=== PATIENT | female | born 1960 | race Caucasian/White ===

== ENCOUNTER 2016-12-22 17:18 | Observation (INO) | payer OTHER ==
--- NOTE | 2016-12-22 17:35 | CPEKG ---
Heart Rate: 103 RR Interval: 583 QRSD Interval: 90 QT Interval: 352 QTC Interval: 461 QRS [place]: 14 T Wave [place]: 41 EKG Severity - ABNORMAL ECG - EKG Impression: ATRIAL FIBRILLATION, V-RATE 83-111 EKG Impression: MULTIFORM VENTRICULAR PREMATURE COMPLEXES Electronically Signed By: Jimmy Jay 22-Dec-2016 20:02:09
--- NOTE | 2016-12-22 17:37 | EDPHY ---
H & P Stated Complaint: From PCP for ?Afib, Chest Heaviness and Cough Time Seen by Provider: 12/22/16 17:27 HPI/ROS: CHIEF COMPLAINT: Dyspnea, newly diagnosed atrial fibrillation HISTORY OF PRESENT ILLNESS: The patient presents to the ED from her primary care provider's office where she was diagnosed with new onset atrial fibrillation. The patient's initial symptoms began in October where she had some chest pain, shortness of breath cough and wheezing. She was diagnosed with bronchitis and treated with albuterol and antibiotics. She had improvement of her symptoms. The patient reports that several weeks ago she had recurrent dyspnea, shortness of breath as well as some vague right-sided chest discomfort. She has had a dry nonproductive cough. The patient denies asymmetric calf pain or swelling. She denies recent prolonged immobilization. The patient denies prior history of PE or DVT. The patient denies history of exertional chest pain. The patient reports mild to moderate dyspnea on exertion. The patient denies fever. She denies additional complaints. REVIEW OF SYSTEMS: A comprehensive 10 point review of systems is otherwise negative aside from elements mentioned in the history of present illness. Source: Patient Exam Limitations: No limitations - Personal History Current Tetanus Diphtheria and Acellular Pertussis (TDAP): Yes - Medical/Surgical History Hx Asthma: No Hx Chronic Respiratory Disease: No Hx Diabetes: No Hx Cardiac Disease: No Hx Renal Disease: No Hx Cirrhosis: No Hx Alcoholism: No Hx HIV/AIDS: No Hx Splenectomy or Spleen Trauma: No Other PMH: Hysterectomy, Heniated Disc, High Cholesterol - Social History Smoking Status: Never smoked - Physical Exam Exam: General Appearance: Alert, no distress Eyes: Pupils equal and round no pallor or injection ENT, Mouth: Mucous membranes moist Respiratory: There are no retractions, lungs are clear to auscultation Cardiovascular: Irregular rate consistent with atrial fibrillation Gastrointestinal: Abdomen is soft and nontender, no masses, bowel sounds normal Neurological: A&O, normal motor function, normal sensory exam, normal cranial nerves Skin: Warm and dry, no rashes Musculoskeletal: Neck is supple nontender Extremities: symmetrical, full range of motion Constitutional: Initial Vital Signs Temperature (C) 36.8 C 12/22/16 17:21 Heart Rate 92 12/22/16 17:21 Respiratory Rate 18 12/22/16 17:21 Blood Pressure 168/118 H 12/22/16 17:21 O2 Sat (%) 96 12/22/16 17:21 O2 Delivery Mode Room Air Allergies/Adverse Reactions: No Known Allergies Allergy (Unverified 12/22/16 17:20) Home Medications: Medication Instructions Recorded PRILOSEC 12/22/16 Simvastatin 12/22/16 Medical Decision Making - Diagnostics EKG Interpretation: EKG: Complete interpretation has been separately recorded in the [facility] archive. Summary impression: Atrial fibrillation, rate 106, no ST segment elevation noted, Imaging: Imaging Impressions Chest X-Ray 12/22/16 17:32 Impression: No acute findings in the chest. ED Course/Re-evaluation: The patient presents to the ED with newly diagnosed atrial fibrillation, dyspnea and vague right-sided chest discomfort. The patient's D-dimer is negative which I feel adequately excludes pulmonary embolism. The patient was started on a diltiazem drip for rapid atrial fibrillation. The patient has no evidence of anemia. She had mild hypertension upon arrival. The patient was referred to the ED from her primary care provider's office. The patient's primary care physician Dr. Shin Jerry has requested that Dr. Jorge Nails from Cardiology evaluate the patient and he will do so tomorrow. The patient will be admitted to the hospital for observation this evening. Consultation is made with Dr. Manning from the hospitalist service. Differential Diagnosis: Differential diagnosis considered includes atrial fibrillation, ventricular tachycardia, congestive heart failure, myocardial infarction, pulmonary embolism , hypertensive emergency - Data Points Laboratory Results: Laboratory Results 12/22/16 17:45 12/22/16 17:45 12/22/16 12/22/16 12/22/16 17:45 17:45 17:45 WBC 6.93 10^3/uL 10^3/uL (3.80-9.50) RBC 4.48 10^6/uL 10^6/uL (4.18-5.33) Hgb 14.5 g/dL g/dL (12.6-16.3) Hct 40.7 % % (38.0-47.0) MCV 90.8 fL fL (81.5-99.8) MCH 32.4 pg pg (27.9-34.1) MCHC 35.6 g/dL g/dL (32.4-36.7) RDW 12.2 % % (11.5-15.2) Plt Count 264 10^3/uL 10^3/uL (150-400) MPV 8.6 fL L fL (8.7-11.7) Neut % (Auto) 60.6 % % (39.3-74.2) Lymph % (Auto) 28.7 % % (15.0-45.0) [place] % (Auto) 6.5 % % (4.5-13.0) Eos % (Auto) 3.0 % % (0.6-7.6) Baso % (Auto) 0.9 % % (0.3-1.7) Nucleat RBC Rel Count 0.0 % % (0.0-0.2) Absolute Neuts (auto) 4.20 10^3/uL 10^3/uL (1.70-6.50) Absolute Lymphs (auto) 1.99 10^3/uL 10^3/uL (1.00-3.00) Absolute Monos (auto) 0.45 10^3/uL 10^3/uL (0.30-0.80) Absolute Eos (auto) 0.21 10^3/uL 10^3/uL (0.03-0.40) Absolute Basos (auto) 0.06 10^3/uL 10^3/uL (0.02-0.10) Absolute Nucleated RBC 0.00 10^3/uL 10^3/uL (0-0.01) Immature Gran % 0.3 % % (0.0-1.1) Immature Gran # 0.02 10^3/uL 10^3/uL (0.00-0.10) PT 12.3 SEC SEC (12.0-15.0) INR 0.92 (0.83-1.16) APTT 25.0 SEC SEC (23.0-38.0) D-Dimer < 0.27 ug/mLFEU ug/mLFEU (0.00-0.50) Sodium 141 mEq/L mEq/L (134-144) Potassium 3.6 mEq/L mEq/L (3.5-5.2) Chloride 106 mEq/L mEq/L (97-110) Carbon Dioxide 23 mEq/l mEq/l (22-31) Anion Gap 12 mEq/L mEq/L (8-16) BUN 13 mg/dL mg/dL (7-23) Creatinine 0.7 mg/dL mg/dL (0.6-1.0) Estimated GFR > 60 Glucose 92 mg/dL mg/dL (70-100) Calcium 10.0 mg/dL mg/dL (8.5-10.4) Troponin I < 0.012 ng/mL ng/mL (0-0.034) TSH Pending Departure - Departure Disposition: [facility] Inpatient Acute Clinical Impression: Atrial fibrillation, Dyspnea Condition: Fair Referrals: hSin Jerry MD [Primary Care Provider] - As per Instructions
[2016-12-22 18:10] LABS: % IMMATURE GRANULYOCYTES 0.3 % (0.0-1.1); ABSOLUTE IMMATURE GRANULOCYTES 0.02 10^3/uL (0.00-0.10); ADD DIFF? NO; ADD MORPH? NO; ADD SCAN? NO; ATYPICAL LYMPHOCYTE FLAG 10 (0-99); FRAGMENT RBC FLAG 0 (0-99); HEMATOCRIT 40.7 % (38.0-47.0); HEMOGLOBIN 14.5 g/dL (12.6-16.3); LEFT SHIFT FLG 0 (0-99); LIPEMIA HEMOLYSIS FLAG 90 (0-99); MEAN CELL HEMOGLOBIN 32.4 pg (27.9-34.1); MEAN CELL HEMOGLOBIN CONCENTR. 35.6 g/dL (32.4-36.7); MEAN CELL VOLUME 90.8 fL (81.5-99.8); MEAN PLATELET VOLUME 8.6 fL (8.7-11.7); PLATELET CLUMPS FLAG 0 (0-99); PLATELET COUNT 264 10^3/uL (150-400); RED BLOOD CELL COUNT 4.48 10^6/uL (4.18-5.33); RED CELL DISTRIBUTION WIDTH 12.2 % (11.5-15.2)
[2016-12-22 18:18] LABS: INR 0.92 (0.83-1.16); PROTIME(PATIENT) 12.3 SEC (12.0-15.0)
[2016-12-22] MEDS ORDERED: DILTIAZEM 125 MG in D5W 125 ML IV ONE (18:19)
[2016-12-22] MEDS ORDERED: ACETAMINOPHEN 325 MG TAB PO PRN (18:34)
[2016-12-22] MEDS ORDERED: ONDANSETRON DISINTEGRATING 4 MG TAB PO PRN (18:34)
[2016-12-22] MEDS ORDERED: ONDANSETRON 4 MG/2 ML VIAL IVP PRN (18:34)
[2016-12-22 18:38] LABS: ANION GAP 12 mEq/L (8-16); CARBON DIOXIDE 23 mEq/l (22-31); CHLORIDE 106 mEq/L (97-110); CREATININE 0.7 mg/dL (0.6-1.0); GLOMERULAR FILTRATION RATE > 60; GLUCOSE 92 mg/dL (70-100); POTASSIUM 3.6 mEq/L (3.5-5.2); SODIUM 141 mEq/L (134-144)
[2016-12-22 18:47] LABS: TROPONIN I < 0.012 ng/mL (0-0.034)
[2016-12-22] MEDS ORDERED: DILTIAZEM 125 MG in D5W 125 ML IV SCH (19:00)
[2016-12-22] MEDS ORDERED: ENOXAPARIN 40 MG/0.4 ML SYR SC SCH (20:30)
--- NOTE | 2016-12-22 20:46 | GHP ---
[f rep st] HISTORY AND PHYSICAL DATE OF ADMISSION: 12/22/2016 CHIEF COMPLAINT: Shortness of breath. HISTORY OF PRESENT ILLNESS: This is a 56-year-old female with a history of hyperlipidemia and a rec ent upper respiratory infection that began in October, associated with cough and shortness of breat h, who presents from her primary care provider office with newly diagnosed atrial fibrillation with rapid ventricular response. The patient reports that she has had a multi week pulmonary process satnam t has included persistent Cough and some shortness of breath with right-sided chest discomfort that prompted her representation to her primary care today as she believed that she had either not had th e original upper respiratory infection 5 weeks ago truly treated or now a new infection on top of it . She denies any subjective fevers or chills. Denies palpitations but a pressure like sensation oc casionally on her chest. Denies any productive cough. Reports increased shortness of breath with a ctivities that she typically would be not be winded by and more fatigue than she normally would note . Reports no nausea or vomiting. Denies changes in her bowel habits, dysuria, hematuria, lower ext remity edema, rashes, lightheadedness, dizziness or vision changes. PAST MEDICAL HISTORY: Hyperlipidemia. SOCIAL HISTORY: Negative for tobacco, alcohol or illicit drugs. REVIEW OF SYSTEMS: A 10-point review of systems is negative with the exception of that reported in the HPI. FAMILY HISTORY: Positive for heart disease in her mother. Unknown whether she has relatives with a trial fibrillation. ADVANCED DIRECTIVES: She is full cor, full tube. Her would be her medical decision maker. PHYSICAL EXAMINATION: VITAL SIGNS: Blood pressure is 160/110, heart rate in the 120s, respiratory rate 18, 95% on room air, 36.9. GENERAL: This is a very healthy appearing middle-aged female in no acute distress. HEENT: Notable for moist mucous membranes. Eye exam is negative for any icterus. CARDIAC: Patient is irregularly irregular. PULMONARY: Good respiratory effort. Clear to auscul tation bilaterally GASTROINTESTINAL: Positive bowel sounds. ABDOMEN: Soft and nontender. MUSCULO SKELETAL: Negative for any lower extremity edema. SKIN: Negative for any rashes. NEUROLOGIC: Pete frausto is alert and oriented x3. PSYCHIATRIC: She is pleasant and cooperative on interview and examinat ion. DATA: White count is 6.9, hematocrit 40.7, platelets of 264. D-dimer is less than 0.27. Troponin less than 0.012. EKG, which I personally reviewed and interpreted, shows atrial fibrillation, normal axis, normal int ervals with no acute ST-T changes. Chest x-ray, which I personally reviewed and interpreted, shows no acute infiltrates or edema. ASSESSMENT AND PLAN: This is a 56-year-old female presenting with atrial fibrillation with rapid ve ntricular response. 1. Atrial fibrillation with rapid ventricular response. The patient had symptoms, not of palpitati ons, but of shortness of breath and chest pressure. This may have been intermittent over the course of the last several weeks. CHADS-VASc score zero. At this time, will not initiate full dose antic oagulation. Will write the patient for aspirin and a diltiazem drip. Dr. Nails from Cardiology will see her in the morning. A transthoracic echocardiogram, and a TSH have both been ordered. 2. Hyperlipidemia. Will continue her home medications. 3. Prophylaxis with Lovenox. DIET: Cardiac. DISPOSITION: I expect in less than 2 midnights if the patient converts overnight on the diltiazem d rip. I have discussed the case with the emergency room physician. Patient will be triaged to the [facility] for a diltiazem drip. /[id number]/MODL
[2016-12-23 07:27] VITALS: O2SAT 97
[2016-12-23] MEDS ORDERED: PANTOPRAZOLE SODIUM 40 MG TAB PO SCH (09:00)
[2016-12-23] MEDS ORDERED: Herbals/Supplements -Info Only PO SCH (09:00)
[2016-12-23] MEDS ORDERED: VITAMIN B COMPLEX 1 EA CAP/TAB PO SCH (09:00)
[2016-12-23] MEDS ORDERED: ASPIRIN 81 MG CHEWABLE TAB PO SCH (09:00)
[2016-12-23] MEDS ORDERED: ATORVASTATIN CALCIUM 10 MG TAB PO SCH (09:00)
[2016-12-23] MEDS: DILTIAZEM 30 MG TAB PO SCH ×2 (10:45→12:34)
[2016-12-23 11:52] VITALS: BP 119/80; PULSE 65; RESP 19; TEMP 98.6
--- NOTE | 2016-12-23 15:55 | ECHO ---
[id number] + + [address] : : [place] [address] : : [phone] + + Adult Echocardiographic Report + -------+ :Name: ALEJANDRINA HOYT LStudy Date: 12/23/2016 07:40 AM : : Hospital Admission Number: [id number] : :: 1960 Gender: Female Height: 6 5 in : :Age: 56 yrs Race: Weight: 1 55 lb : :Reason For Study: New atrial fibrillation : : BSA: 1.8 meters2: + -------+ MMode/2D Measurements \T\ Calculations IVSd: 1.1 cm LVIDd: 4.0 cm FS: 32.4 % Ao root diam: LVPWd: 0.99 cm LVIDs: 2.7 cm EDV(Teich): 3.4 cm 68.3 ml LA dimension: ESV(Teich): 3.9 cm 26.4 ml EF(Teich): 61.3 % LVLd ap4: 7.5 cm SV(MOD-sp4): EDV(MOD-sp4): 35.0 ml 52.0 ml LVLs ap4: 6.1 cm ESV(MOD-sp4): 17.0 ml EF(MOD-sp4): 67.3 % Normal Measurement Values: + + :LVIDd (3.5-5.7cm) IVSd (0.6-1.1cm) LVPWd (0.6-1.1cm) Aortic Root (2.0-3.7cm)Left Atrium (1.5-4.0cm): :LV Vol(d) (76-115ml) LV Vol(s) (29-48ml) Ejec Fraction (50-65%)PV Americo (0.6- 1.2m/s) TV Americo (0.4-1.0m/s) : :MV E Americo (0.8-1.0m/s)MV A [place]o (0.3-1.0m/s)LVOT Americo (0.7-1.2m/s) Asc Ao Americo ( 0.9-1.8m/s) : + + Doppler Measurements \T\ Calculations MV E max americo: 71.3 cm/sec Ao V2 max: 115.4 cm/sec MV A max americo: 56.2 cm/sec Ao max P.3 mmHg MV E/A: 1.3 Left Ventricle The left ventricle is normal in size. There is normal left ventricular wall thickness. Left ventricular systolic function is normal. Ejection Fraction = 65-70%. No regional wall motion abnormalities noted. Right Ventricle The right ventricle is normal in size and function. Atria The left atrial size is normal. Right atrial size is normal. The interatrial septum is intact with no evidence for an atrial septal defect. Mitral Valve The mitral valve is normal in structure and function. There is no evidence of mitral valve prolapse. There is no mitral valve stenosis. There is trace mitral regurgitation. Tricuspid Valve Normal tricuspid valve. There is mild tricuspid regurgitation. Aortic Valve The aortic valve opens well. There is no aortic stenosis. There is no aortic insufficiency. Pulmonic Valve The pulmonic valve is not well visualized. There is no pulmonic valvular regurgitation. Great Vessels The aortic root is normal size. Pericardium/Pleural There is no pericardial effusion. There is a fat pad seen. Conclusion A complete two-dimensional transthoracic echocardiogram was performed (2D, M-mode, Doppler and color flow Doppler). Pt converted to NSR during echo. Left ventricular systolic function is normal. Ejection Fraction = 65-70%. Normal appearing valvular structures. There is trace mitral regurgitation. There is mild tricuspid regurgitation. There is a fat pad seen. Final Reading Physician: Candy Bradshaw signed on 12/23/2016 03:54 PM Ordering Physician: Beth Manning Performed By: Rafaela Washington RDCS
--- NOTE | 2016-12-23 20:49 | GDS ---
[f rep st] DISCHARGE SUMMARY DISCHARGE DIAGNOSES: 1. Atrial fibrillation with rapid ventricular rate, since converted to normal sinus rhythm. 2. Recent upper respiratory infection. 3. Hyperlipidemia. IMAGING AND PROCEDURES: 1. Echocardiogram, December 23, 2016, showed normal left ventricular systolic function with an ejectio n fraction 65% to 70% and normal-appearing valves. 2. Chest x-ray, December 22, 2016, was negative for consolidation, effusion or pneumothorax. HISTORY: For details, please see the history and physical dated January 08, 2017. In brief, the melonie ent is a 56-year-old female with a history of hyperlipidemia and a recent upper respiratory infectio n treated with steroids and antibiotics who presented to the emergency department with shortness of breath. She was found to be in rapid atrial fibrillation and was admitted to the hospital for furth er management. HOSPITAL COURSE: The patient was admitted to the care unit and monitored on telemetry. She was started on a diltiazem drip for rate control. She had a CHADS/VASc score of zero and thus w as treated with aspirin rather than anticoagulation. An echo was performed and revealed normal valve s. Her TSH was normal. Her chest x-ray was clear. Her EKG was nonischemic. She had 2 negative tropo nins and negative D-dimer. The following morning, she converted to normal sinus rhythm and was trans itioned to oral diltiazem. DISPOSITION: Patient is discharged home in stable condition. FOLLOWUP: Follow up with Dr. Roel Nails next week, as well as her primary care physician, Dr. Shin Jerry. DISCHARGE MEDICATIONS: Please see [employer] for complete updated outpatient medication list. New me dications on discharge include aspirin 81 mg p.o. daily, #30, no refills. Diltiazem 30 mg p.o. q.6 hours, #120, no refills. If she tolerates this well, this can be transitioned to long-acting diltia zem in her outpatient clinic follow up. Changed medications: Her simvastatin was discontinued and she was prescribed pravastatin 40 mg brent y to reduce drug interaction with statins and diltiazem. /[id number]/MODL
== END 2016-12-23 12:48 | disposition home or self-care (01) ==
LOC: F2W 20:25
PROVIDERS: ADMIT Hospitalist; ATTEND Hospitalist
DX: I48.91 Unspecified atrial fibrillation (principal); R00.0 Tachycardia, unspecified; E78.5 Hyperlipidemia, unspecified; J06.9 Acute upper respiratory infection, unspecified
CPT/HCPCS: 71010; 93005; 93306; G0378; J1650

== ENCOUNTER 2017-05-31 18:21 | Observation (INO) | payer OTHER ==
--- NOTE | 2017-05-31 18:39 | CPEKG ---
Heart Rate: 90 RR Interval: 667 QRSD Interval: 100 QT Interval: 408 QTC Interval: 500 QRS [place]: 8 T Wave [place]: 49 EKG Severity - ABNORMAL ECG - EKG Impression: ATRIAL FIBRILLATION Electronically Signed By: Irwin Ivey 01-Jun-2017 16:42:05
[2017-05-31] MEDS ORDERED: NITROGLYCERIN 0.4 MG BTL SL ONE ×2 (18:45→18:52)
[2017-05-31] MEDS ORDERED: ASPIRIN 81 MG CHEWABLE TAB ONE (18:45)
--- NOTE | 2017-05-31 18:47 | EDPHY ---
H & P Stated Complaint: CP Time Seen by Provider: 05/31/17 18:31 HPI/ROS: Chief Complaint: Chest pain HPI: 57-year-old woman with a history of paradoxical atrial fibrillation since December started having palpitations at 4 o'clock this afternoon consistent with prior episodes of atrial fibrillation. Was concerning to her with this is that she had chest tightness to an 8/10 which she had never had before. She was recently seen by Dr. barrera and by Dr. Ivey and was started on propafenone last week. She has had gone in atrial fibrillation for least 8 hours a day for 4-5 times in the last week. Denies any recent illness. No fevers or chills. No nausea or vomiting. Pain is described as a tightness in her chest, is an 8/10. There are no aggravating or alleviating factors. She is currently taking a baby aspirin a day is not on any other anticoagulation. ROS: 10 point Review of Systems is negative except as noted in the HPI. PMH: Atrial fibrillation Social History: No smoking, occasional alcohol, no recreational drug use Family History: non-contributory Physical Exam: Gen: Awake, Alert, No Distress HEENT: Nose: no rhinorrhea Eyes: PERRLA, EOMI Mouth: Moist mucosa Neck: Supple, no JVD Chest: nontender, lungs clear to auscultation Heart: S1, S2 normal, irregularly irregular, no murmur Abd: Soft, non-tender, no guarding Back: no CVA tenderness, no midline tenderness Ext: no edema, non-tender Skin: no rash Neuro: CN II-XII intact, Sensation grossly intact, Strength 5/5 in bilateral upper and lower extremities - Personal History Current Tetanus/Diphtheria Vaccine: Yes Current Tetanus Diphtheria and Acellular Pertussis (TDAP): Yes - Medical/Surgical History Hx Asthma: No Hx Chronic Respiratory Disease: No Hx Diabetes: No Hx Cardiac Disease: No Hx Renal Disease: No Hx Cirrhosis: No Hx Alcoholism: No Hx HIV/AIDS: No Hx Splenectomy or Spleen Trauma: No Other PMH: Hysterectomy, Heniated Disc, High Cholesterol, REFLUX, Bronchitis - Social History Smoking Status: Never smoked Constitutional: Initial Vital Signs Temperature (C) 36.6 C 05/31/17 18:22 Heart Rate 81 05/31/17 18:22 Respiratory Rate 16 05/31/17 18:22 Blood Pressure 171/110 H 05/31/17 18:22 O2 Sat (%) 96 05/31/17 18:22 O2 Delivery Mode Room Air Allergies/Adverse Reactions: No Known Allergies Allergy (Unverified 12/22/16 17:20) Home Medications: Medication Instructions Recorded Estradiol [Minivelle] 0.075 mg TD TUSA 12/22/16 Herbals/Supplements -Info Only 1 ea PO DAILY 12/22/16 Omeprazole Magnesium [Prilosec Otc] 20 mg PO DAILY 12/22/16 Vitamin B Complex [B Complex] 1 each PO DAILY 12/22/16 Aspirin [Aspirin 81mg (*)] 81 mg PO DAILY #30 tab.chew 12/23/16 Pravastatin Sodium 40 mg PO HS 12/23/16 Cetirizine [ZyrTEC 10 mg (*)] 10 mg PO DAILY 05/31/17 Diltiazem [Cardizem] 120 mg PO DAILY 05/31/17 Fish Oil/Dha/Epa [Fish Oil 1,200 1 each PO DAILY 05/31/17 mg Fish Oil] Propafenone HCl [Propafenone HCl 225 mg PO BID 05/31/17 ER] Medical Decision Making - Diagnostics EKG Interpretation: ECG time 6:36 p.m., atrial fibrillation, ventricular rate of 90, no acute ischemic changes. ED Course/Re-evaluation: 57-year-old woman with atrial fibrillation presenting with AF and chest tightness. No history of chest tightness associated if the past. Patient did receive relief with nitroglycerin here. Troponins negative. Case discussed with Dr. Felipe, hospitalist. He will admit to his service for serial troponins and ECGs. - Data Points Laboratory Results: Laboratory Results 05/31/17 18:40 05/31/17 18:40 05/31/17 05/31/17 18:40 18:40 WBC 6.07 10^3/uL 10^3/uL (3.80-9.50) RBC 4.69 10^6/uL 10^6/uL (4.18-5.33) Hgb 14.8 g/dL g/dL (12.6-16.3) Hct 43.0 % % (38.0-47.0) MCV 91.7 fL fL (81.5-99.8) MCH 31.6 pg pg (27.9-34.1) MCHC 34.4 g/dL g/dL (32.4-36.7) RDW 12.5 % % (11.5-15.2) Plt Count 314 10^3/uL 10^3/uL (150-400) MPV 9.3 fL fL (8.7-11.7) Neut % (Auto) 53.8 % % (39.3-74.2) Lymph % (Auto) 32.8 % % (15.0-45.0) [place] % (Auto) 7.2 % % (4.5-13.0) Eos % (Auto) 4.4 % % (0.6-7.6) Baso % (Auto) 1.5 % % (0.3-1.7) Nucleat RBC Rel Count 0.0 % % (0.0-0.2) Absolute Neuts (auto) 3.26 10^3/uL 10^3/uL (1.70-6.50) Absolute Lymphs (auto) 1.99 10^3/uL 10^3/uL (1.00-3.00) Absolute Monos (auto) 0.44 10^3/uL 10^3/uL (0.30-0.80) Absolute Eos (auto) 0.27 10^3/uL 10^3/uL (0.03-0.40) Absolute Basos (auto) 0.09 10^3/uL 10^3/uL (0.02-0.10) Absolute Nucleated RBC 0.00 10^3/uL 10^3/uL (0-0.01) Immature Gran % 0.3 % % (0.0-1.1) Immature Gran # 0.02 10^3/uL 10^3/uL (0.00-0.10) Sodium 138 mEq/L mEq/L (134-144) Potassium 3.8 mEq/L mEq/L (3.5-5.2) Chloride 98 mEq/L mEq/L (97-110) Carbon Dioxide 25 mEq/l mEq/l (22-31) Anion Gap 15 mEq/L mEq/L (8-16) BUN 15 mg/dL mg/dL (7-23) Creatinine 0.7 mg/dL mg/dL (0.6-1.0) Estimated GFR > 60 Glucose 88 mg/dL mg/dL (70-100) Calcium 10.4 mg/dL mg/dL (8.5-10.4) Total Bilirubin 0.5 mg/dL mg/dL (0.1-1.4) AST 28 IU/L IU/L (14-46) ALT 39 IU/L IU/L (9-52) Alkaline Phosphatase 66 IU/L IU/L (38-126) Troponin I < 0.012 ng/mL ng/mL (0.000-0.034) Total Protein 8.0 g/dL g/dL (6.3-8.2) Albumin 5.0 g/dL g/dL (3.5-5.0) Medications Given: Discontinued Medications Aspirin (Aspirin) 324 mg PO EDNOW ONE Stop: 05/31/17 18:53 Last Admin: 05/31/17 18:55 Dose: 234 mg Nitroglycerin (Nitrostat) 0.4 mg SL EDNOW ONE Stop: 05/31/17 18:53 Last Admin: 05/31/17 18:54 Dose: 0.4 mg Departure - Departure Disposition: [facility] Inpatient Acute Clinical Impression: Chest pain Condition: Fair Referrals: Shin Jerry MD [Primary Care Provider] - As per Instructions
[2017-05-31] MEDS ORDERED: ASPIRIN 81 MG CHEWABLE TAB PO ONE (18:52)
[2017-05-31 19:11] LABS: ALANINE AMINOTRANSFERASE 39 IU/L (9-52); ALKALINE PHOSPHATASE 66 IU/L (38-126); ANION GAP 15 mEq/L (8-16); ASPARTATE AMINOTRANSFERASE 28 IU/L (14-46); BILIRUBIN,TOTAL 0.5 mg/dL (0.1-1.4); CALCIUM 10.4 mg/dL (8.5-10.4); CARBON DIOXIDE 25 mEq/l (22-31); CHLORIDE 98 mEq/L (97-110); CREATININE 0.7 mg/dL (0.6-1.0); GLOMERULAR FILTRATION RATE > 60; GLUCOSE 88 mg/dL (70-100); POTASSIUM 3.8 mEq/L (3.5-5.2); SODIUM 138 mEq/L (134-144)
[2017-05-31 19:22] LABS: TROPONIN I < 0.012 ng/mL (0.000-0.034)
[2017-05-31 20:25] LABS: % IMMATURE GRANULYOCYTES 0.3 % (0.0-1.1); ABSOLUTE IMMATURE GRANULOCYTES 0.02 10^3/uL (0.00-0.10); ADD DIFF? NO; ADD MORPH? NO; ADD SCAN? NO; ATYPICAL LYMPHOCYTE FLAG 0 (0-99); FRAGMENT RBC FLAG 0 (0-99); HEMOGLOBIN 14.8 g/dL (12.6-16.3); LEFT SHIFT FLG 0 (0-99); LIPEMIA HEMOLYSIS FLAG 90 (0-99); MEAN CELL HEMOGLOBIN 31.6 pg (27.9-34.1); MEAN CELL HEMOGLOBIN CONCENTR. 34.4 g/dL (32.4-36.7); MEAN CELL VOLUME 91.7 fL (81.5-99.8); MEAN PLATELET VOLUME 9.3 fL (8.7-11.7); PLATELET CLUMPS FLAG 20 (0-99); PLATELET COUNT 314 10^3/uL (150-400); RED BLOOD CELL COUNT 4.69 10^6/uL (4.18-5.33); RED CELL DISTRIBUTION WIDTH 12.5 % (11.5-15.2)
[2017-05-31] MEDS ORDERED: ACETAMINOPHEN 325 MG TAB PO PRN (21:02)
[2017-05-31] MEDS ORDERED: ONDANSETRON 4 MG/2 ML VIAL IVP PRN (21:02)
[2017-05-31] MEDS ORDERED: ONDANSETRON DISINTEGRATING 4 MG TAB PO PRN (21:02)
[2017-05-31] MEDS ORDERED: PRAVASTATIN SODIUM 40 MG TAB PO SCH (21:30)
[2017-05-31] MEDS: PROPAFENONE HCL SR 225 MG CAP PO SCH (21:50)
--- NOTE | 2017-05-31 22:02 | GHP ---
[f rep st] HISTORY AND PHYSICAL DATE OF ADMISSION: 05/31/2017 HISTORY OF PRESENT ILLNESS: The patient is a very pleasant 57-year-old female with a history of atri al fibrillation diagnosed in December of this year after an admission with chest symptoms. At that time , she had a normal echocardiogram. This has been paroxysmal atrial fibrillation. She has seen Dr. Ivey and been started on propafenone. Her [id number] is 0. Says she is not on anticoagulation, aspirin alone. She also has a history o f hyperlipidemia. She had an active day riding horses and came home. She had symptoms of atrial fib rillation and then developed some sharp chest pains in the left side. Did not radiate. Was not asso ciated with diaphoresis, shortness of breath. Although her atrial fibrillation is often associated w ith shortness of breath, it is a little difficult to tease that out. Her exercise tolerance has not changed. She does have a family history of coronary artery disease bu t does not sound like premature coronary artery disease. Her coronary risk factors are hyperlipidemi a. She does not have hypertension. She does not smoke. She has not had heart failure symptoms. She had recent overnight hospitalization in December this year. No recent surgeries. No recent long ca r trips or plane trips. She denies calf tenderness, leg pain. REVIEW OF SYSTEMS: A complete 10-point review of systems conducted and negative except as noted in t he HPI. PAST MEDICAL HISTORY: Paroxysmal atrial fibrillation, hyperlipidemia, reflux. ALLERGIES: No known drug allergies. MEDICATIONS: Propafenone, vitamin B complex, aspirin, cetirizine, diltiazem, estradiol, fish oil and herbal supplements. SOCIAL HISTORY: No tobacco. Occasional alcohol. Lives with her . FAMILY HISTORY: As stated in the HPI. PHYSICAL EXAMINATION: PRESENTING VITAL SIGNS: Temp 36.6. Blood pressure 171/110. Now, 139/95. Pu lse 81. Breathing 16 times a minute. 96 on room air. GENERAL: No acute distress. HEENT: Sclerae anicteric. Oropharynx clear. Mucous membranes moist. NECK: Supple without lymphadenopathy or JVD . LUNGS: Clear to auscultation bilaterally. HEART: Irregularly irregular. S1, S2 without murmurs . ABDOMEN: Soft, nontender, nondistended. LOWER EXTREMITIES: Without edema. Calves are nontender . SKIN: Without rash. NEUROLOGIC: Nonfocal. LABORATORY: Sodium 138, potassium 3.8, chloride 98, bicarb 25, BUN 15, creatinine 0.7, glucose 88. LFTs normal. Troponin less than 0.012. CBC normal. EKG, interpreted by me, shows atrial fibrillation at 90 with normal axis and intervals. No ST or T-w ave changes. I have compared this to prior, and it is the same. I discussed the case with Dr. Ludwin Boothe. ASSESSMENT/PLAN: A 57-year-old female with paroxysmal atrial fibrillation presents with chest pain. 1. Chest pain. Somewhat atypical in nature in its sharpness but then she describes a dull heaviness . It is neither typical nor noncardiac chest pain. It is reasonable to stress her, cycle troponins. Follow her on telemetry. Perform exercise treadmill test with nuclear imaging in the morning. We will check a chest x-ray as that has not been obtained. 2. Question pulmonary embolism. Her risk factors are that she takes estrogen and has somewhat atypi audelia symptoms. We will check a D-dimer. If that is positive, we will go ahead and proceed with pulmo nary embolism. 3. Hyperlipidemia. Continue her statin. DISPOSITION: Observation status. /[id number]/MODL
[2017-06-01] MEDS: PROPAFENONE HCL SR 225 MG CAP PO SCH (08:57)
[2017-06-01] MEDS ORDERED: OMEGA-3 FATTY ACIDS 1,000 MG CAP PO SCH (09:00)
[2017-06-01] MEDS ORDERED: DILTIAZEM CD 120 MG CAP PO SCH (09:00)
[2017-06-01] MEDS ORDERED: CETIRIZINE 10 MG TAB PO SCH (09:00)
[2017-06-01] MEDS ORDERED: ASPIRIN 81 MG CHEWABLE TAB PO SCH (09:00)
[2017-06-01] MEDS ORDERED: PANTOPRAZOLE SODIUM 40 MG TAB PO SCH (09:00)
[2017-06-01] MEDS ORDERED: Herbals/Supplements -Info Only PO SCH (09:00)
[2017-06-01] MEDS ORDERED: DILTIAZEM 120 MG PO SCH (09:00)
[2017-06-01 11:58] VITALS: BP 99/83; PULSE 96; RESP 18; TEMP 98; O2SAT 93
[2017-06-01] MEDS ORDERED: REGADENOSON 0.4 MG/5 ML SYR IVP ONE (12:36)
--- NOTE | 2017-06-01 13:54 | ASMTCMCOM ---
CM Note CM Note Notes: Pt is a 57 y/o female admitted w/ chest pain and AFIB. Pt was here at [facility] this past December for chest symptoms. Pt has a stress test ordered. Pt will most likely discharge independent with supportive . No therapies were ordered. CM available for changes. Date Signed: 06/01/2017 01:53 PM Electronically Signed By:HELADIO Corado
--- NOTE | 2017-06-01 13:55 | CPR ---
[f rep st] NONINVASIVE CARDIAC PROCEDURE REPORT DATE OF PROCEDURE: 06/01/2017 PROCEDURE: Nuclear Lexiscan stress test. REASON FOR TEST: Atrial fibrillation and chest pain. Resting EKG shows atrial fibrillation with a rate of 114. She is asymptomatic. Resting blood pressu re 112/78, oxygen saturation 95%. STRESS PORTION: Lexiscan was injected rapidly, followed by saline flush. Cardiolite was then inject ed, followed by saline flush. Her heart rate did go up to 150 after injection. She did become flush ed and lightheaded. She was laid down and given caffeine, and symptoms subsided. Blood pressure 96/ 40. No ischemic changes noted. She spontaneously recovered with the caffeine. She then converted to a regular sinus rhythm. Blood pressure stable at 96/40. At conclusion of test, her heart rate was 82, blood pressure remained 96/4 0. She had no dizziness or lightheadedness. There were no ischemic changes noted on EKG. At this t dwayne, she currently is stable for nuclear imaging. /[id number]/MODL
--- NOTE | 2017-06-01 18:27 | GDS ---
[f rep st] DISCHARGE SUMMARY DISCHARGE DIAGNOSES: 1. Chest pain. 2. Paroxysmal atrial fibrillation, on anticoagulation. 3. Hyperlipidemia. HISTORY OF PRESENT ILLNESS: A 57-year-old female with known paroxysmal atrial fibrillation, already seen by Cardiology, on anticoagulation, who presents with episodes of intermittent palpitations with associated chest pressure. For details of the patient's initial presentation, please see the history and physical dated 05/31/2017. Consultative services are none. PROCEDURES: On 06/01/2017, the patient underwent cardiac stress testing, which was negative for any inducible ischemia, wall motion abnormalities, showing a normal ejection fraction in the 70s. HOSPITAL COURSE: 1. Chest pressure. The patient was admitted to the PCU. Serial troponins ruled out, and taken for stress testing the morning after presentation. With negative testing, the patient is being discharge d on her normal cardiac medications with recommendation to see Dr. Ivey whom she had initially been pl anning to see for evaluation related to ablation. 2. Paroxysmal atrial fibrillation. The patient did pop in and out of atrial fibrillation. I do bel ieve she is symptomatic, and would likely benefit from intervention again. She will be scheduling wi Dr. Ivey in the next few weeks. We are continuing her home medications, including anticoagulation. MEDICATIONS AT THE TIME OF DISPOSITION: Please reference the med rec printed on 06/01/2017. PENDING STUDIES: None. APPOINTMENTS: The patient will schedule in the next 2-[address] Ivey for discussions related t o ablation. I spent greater than 30 minutes in the planning and coordination of this discharge. /[id number]/MODL
--- NOTE | 2017-06-02 09:15 | ASDISCHSUM ---
Discharge Information Plan Status:Home with No Needs Medically Cleared to Leave: Discharge Date:06/01/2017 04:45 PM CM D/C Disposition:Home, Routine, Self-Care ADT D/C Disposition:Home, Routine, Self-Care Projected Discharge Date:06/01/2017 12:00 AM Transportation at D/C: Discharge Delay Reason: Follow-Up Date:06/01/2017 12:00 AM Discharge Slot: Final Diagnosis: Placement Information Patient Contact Information Contact Name:ESTEVAN Relationship: Address:[address] [place] Alternate Phone: [facility]/Zip Code:[place] [address] Email: Financial Information Financial Class:HMO and PPO Plans Primary Plan Desc:[facility] Primary Plan Number:[id number] Secondary Plan Desc: Secondary Plan Number: Assessment Information [facility] CM Progress Note CM Note CM Note Notes: Pt is a 57 y/o female admitted w/ chest pain and AFIB. Pt was here at [facility] this past December for chest symptoms. Pt has a stress test ordered. Pt will most likely discharge independent with supportive . No therapies were ordered. CM available for changes. Date Signed: 06/01/2017 01:53 PM Electronically Signed By:HELADIO Corado Intervention Information
[2017-06-03] MEDS ORDERED: ESTRADIOL VIVELLE 0.0375 MG PATCH TD SCH (09:00)
== END 2017-06-01 16:45 | disposition home or self-care (01) ==
LOC: F2W 21:07
PROVIDERS: ADMIT Internal Medicine; ATTEND Hospitalist
DX: R07.89 Other chest pain (principal); I48.0 Paroxysmal atrial fibrillation; E78.5 Hyperlipidemia, unspecified; K21.9 Gastro-esophageal reflux disease without esophagitis; Z79.01 Long term (current) use of anticoagulants
CPT/HCPCS: 71020; 78452; 93005; 93017; A9500; G0378; J2785

== ENCOUNTER → 2017-08-07 | Outpatient (CLI) | payer OTHER ==
[~2017-08-07] MED LIST: IOPAMIDOL (ISOVUE 370) 100 ML BTL IV ONE
== END ==
LOC: FIMAGING 08:42
PROVIDERS: ATTEND Internal Medicine Cardiovascular Disease
DX: I48.91 Unspecified atrial fibrillation (principal)
CPT/HCPCS: Q9967

== ENCOUNTER 2017-08-16 11:03 | Observation (INO) | payer OTHER ==
[2017-08-16] MEDS ORDERED: NS 1,000 ML IV ONE (11:23)
--- NOTE | 2017-08-16 11:41 | CPEKG ---
Heart Rate: 60 RR Interval: 1000 P-R Interval: 172 QRSD Interval: 94 QT Interval: 432 QTC Interval: 432 P [place]: -22 QRS [place]: 13 T Wave [place]: 49 EKG Severity - NORMAL ECG - EKG Impression: SINUS RHYTHM Electronically Signed By: Christian Morales 16-Aug-2017 23:11:39
[2017-08-16] MEDS ORDERED: FAMOTIDINE 20 MG/NACL 50 ML IV ONE (12:00)
[2017-08-16] MEDS ORDERED: methylPREDNISolone SOD SUCC 125 MG/2 ML VIAL IVP ONE (12:00)
[2017-08-16 12:02] LABS: % IMMATURE GRANULYOCYTES 0.2 % (0.0-1.1); ABSOLUTE IMMATURE GRANULOCYTES 0.01 10^3/uL (0.00-0.10); ADD DIFF? NO; ADD MORPH? NO; ADD SCAN? NO; ATYPICAL LYMPHOCYTE FLAG 40 (0-99); FRAGMENT RBC FLAG 0 (0-99); HEMATOCRIT 42.4 % (38.0-47.0); HEMOGLOBIN 14.6 g/dL (12.6-16.3); LEFT SHIFT FLG 0 (0-99); LIPEMIA HEMOLYSIS FLAG 90 (0-99); MEAN CELL HEMOGLOBIN 31.2 pg (27.9-34.1); MEAN CELL HEMOGLOBIN CONCENTR. 34.4 g/dL (32.4-36.7); MEAN CELL VOLUME 90.6 fL (81.5-99.8); MEAN PLATELET VOLUME 8.8 fL (8.7-11.7); PLATELET CLUMPS FLAG 0 (0-99); PLATELET COUNT 268 10^3/uL (150-400); RED BLOOD CELL COUNT 4.68 10^6/uL (4.18-5.33); RED CELL DISTRIBUTION WIDTH 11.6 % (11.5-15.2)
[2017-08-16 12:15] LABS: ANION GAP 12 mEq/L (8-16); CALCIUM 9.8 mg/dL (8.5-10.4); CARBON DIOXIDE 27 mEq/l (22-31); CHLORIDE 105 mEq/L (97-110); CREATININE 0.7 mg/dL (0.6-1.0); GLOMERULAR FILTRATION RATE > 60; GLUCOSE 94 mg/dL (70-100); POTASSIUM 4.2 mEq/L (3.5-5.2); SODIUM 144 mEq/L (134-144)
[2017-08-16 12:24] LABS: INR 0.93 (0.83-1.16); PROTIME(PATIENT) 12.7 SEC (12.0-15.0)
[2017-08-16 12:25] LABS: APTT 27.6 SEC (23.0-38.0)
[2017-08-16] MEDS ORDERED: BUPIVACAINE 0.5% 30 ML SDV ONE (13:00)
[2017-08-16] MEDS ORDERED: HEPARIN/DEXTROSE 25,000 UNIT/500 ML BAG ONE (13:00)
[2017-08-16] MEDS ORDERED: LIDOCAINE 1% 300 MG/30 ML SDV ONE (13:00)
[2017-08-16] MEDS ORDERED: HEPARIN 10,000 UNIT/10 ML MDV ONE (13:00)
[2017-08-16] MEDS ORDERED: IOPAMIDOL (ISOVUE-300) 100 ML BTL ONE (13:01)
[2017-08-16] MEDS ORDERED: MIDAZOLAM 2 MG/2 ML VIAL IVP ONE (13:27)
--- NOTE | 2017-08-16 13:27 | PDANEPAE ---
ANE History of Present Illness here for EP study and AF ablation ANE Past Medical History - Cardiovascular History Hx Hypertension: No Hx Arrhythmias: Yes Hx Chest Pain: Yes Hx Coronary Artery / Peripheral Vascular Disease: No Hx CHF / Valvular Disease: No Hx Palpitations: Yes - Pulmonary History Hx COPD: No Hx Asthma/Reactive Airway Disease: No Hx Recent Upper Respiratory Infection: No Hx Oxygen in Use at Home: No Hx Sleep Apnea: Yes - Endocrine History Hx Diabetes: No Hypothyroid: No Hyperthyroid: No - Renal History Hx Renal Disorders: No - Liver History Hx Hepatic Disorders: No - Neurological & Psychiatric Hx Hx Neurological and Psychiatric Disorders: No - Cancer History Hx Cancer: No - Chronic Pain History Chronic Pain: No ANE Review of Systems Review of systems is: negative Review of Systems: - Exercise capacity Exercise capacity: >=4 METS ANE Patient History - Allergies Allergies/Adverse Reactions: Iodinated Contrast- Oral and IV Dye Allergy (Verified 08/16/17 11:35) - Home Medications Home medications: home medication list seen and reviewed Home Medications: Herbals/Supplements -Info Only 1 ea PO DAILY 12/22/16 [Last Taken 05/31/17] Omeprazole Magnesium [Prilosec Otc] 20 mg PO DAILY 12/22/16 [Last Taken 05/31/17 ] Vitamin B Complex [B Complex] 2 each PO DAILY 12/22/16 [Last Taken 05/31/17] Diltiazem Cd [Cardizem ER 120 MG (*)] 120 mg PO DAILY 05/31/17 [Last Taken 05/31] Apixaban [Eliquis] 5 mg PO BID 08/07/17 [Last Taken Unknown] Ferrous Sulfate [Ferrous Sulf 325 MG (*)] 325 mg PO DAILY 08/07/17 [Last Taken Unknown] Pravastatin Sodium 20 mg PO HS 08/07/17 [Last Taken Unknown] - NPO status NPO Status: no food or drink >8 hours - Smoking Hx Smoking Status: Never smoked ANE Labs/Vital Signs - Labs Result Diagrams: 08/16/17 11:35 08/16/17 11:35 - Vital Signs Height: 165 cm Weight: 68 kg ANE Physical Exam - Airway Neck exam: FROM Mallampati Score: Class 1 - Pulmonary Pulmonary: no respiratory distress - Cardiovascular Cardiovascular: regular rate and rhythym - ASA Status ASA Status: II ANE Anesthesia Plan Anesthesia Plan: general endotracheal anesthesia
[2017-08-16] MEDS ORDERED: PROPOFOL/EMULSION 500 MG/50 ML BOTTLE IV ONE (13:35)
--- NOTE | 2017-08-16 13:36 | PDGENHP ---
History & Physical Chief Complaint: Symptomatic AFIB History of Present Illness: Palpitations and fatigue related to AF. Last episode Wed. Does not want to take AAD. Relevant Physical Exam: [id number]. cta. ao 3 Cardiorespiratory Assessment: PAF - plan ARIANA followed by PVI.
[2017-08-16] MEDS ORDERED: fentaNYL 100 MCG/2 ML INJ ONE ×2 (13:50→14:57)
[2017-08-16] MEDS ORDERED: PROPOFOL 200 MG/20 ML VIAL ONE (14:58)
[2017-08-16] MEDS ORDERED: PROTAMINE SULFATE 50 MG/5 ML VIAL IVP ONE (15:47)
[2017-08-16] MEDS ORDERED: ATROPINE SULFATE 1 MG/10 ML SYR ONE (16:28)
--- NOTE | 2017-08-16 16:29 | EPPROC ---
Electrophysiology Procedure Note: ELECTROPHYSIOLOGIC STUDY AND BALLOON-CATHETER MEDIATED CRYOABLATION FOR PAROXYSMAL ATRIAL FIBRILLATION Procedures performed: 10067-93 EP evaluation with RA/RV/LA pace/record, with arrhythmia induction 79939-98 EP evaluation with RA/RV pace record, insert/reposition catheter, with arrhythmia induction 17555 Atrial fibrillation ablation Intracardiac echocardiogram Transseptal puncture Fluoroscopy INDICATION: Paroxysmal atrial fibrillation PROCEDURE: The patient arrived in the Electrophysiology Laboratory in the fasting state. The right groin, left groin and right infraclavicular area were prepped and draped in the usual sterile fashion. Anesthesiologist administered general anesthesia Dr. Bobo Dickens . All catheters were placed percutaneously using the Seldinger technique and advanced into position under fluoroscopic guidance. One #7 Italian deflectable octapolar electrode catheter was placed in the His-bundle position via the left femoral vein (2mm spacing, IVC electrode for unipolar recordings). This catheter was placed in the coronary sinus after transseptal puncture and later placed in the SVC-R subclavian vein junction to pace the right phrenic nerve during right pulmonary vein ablation. One #8 Italian AcuNaV ultrasound catheter was placed in the left femoral vein and advanced into the right atrium. One #4 Italian sheath was inserted into the left femoral artery via percutaneous technique and used for continuous arterial blood pressure monitoring and intermittent ACT determination. Programmed stimulation was performed from the right atrium, left atrium (CS) and right ventricle. There was no evidence of AV accessory pathway. Intracardiac echo evaluation of the left atrium and pulmonary veins was performed. Baseline ACT was drawn and heparin bolus was administered and heparin drip was started prior to transseptal puncture. ACT was checked every 15 minutes and maintained in the range of 350-400 seconds. One 14Fr short sheath was placed in the right femoral vein. One 8Fr SL1 sheath was advanced into the right atrium via the 14Fr short sheath. Transseptal puncture was performed under intracardiac ultrasound, fluoroscopic and hemodynamic guidance placing the sheath into the left atrium. Java RF needle ( C0 curve) was used. The mean left atrial pressure was 6 mmHg. Pulmonary vein angiogram was done using SL1 sheath. CT angiography of pulmonary veins was done previously. There were distinct LSPV, LIPV, RSPV and RIPV. The SL1 sheath was exchanged for a [employer] Flexcath sheath using an Amplatz stiff guide wire. A 28 mm Cryoballoon catheter with a 20 mm Achieve catheter was placed via the sheath into the left atrium. Intracardiac ultrasound and PV angiograms were used to assist in placing the mapping catheter at the antrum of the pulmonary veins. All pulmonary veins were isolated successfully using cryoballoon ablation using freeze/thaw/freeze cycles at 2-3-minute intervals, with good [id number] of isolation. Coumadin ridge/Ligament of Loco region was ablated. Pre and post pulmonary vein recordings were measured on the spiral Achieve catheter to ensure complete pulmonary vein isolation. During the right-sided ablation, phrenic nerve pacing was performed to assess the phrenic nerve strength ( manually and with ICE visualization of liver movement during phrenic capture) and the phrenic nerve was intact throughout the right-sided ablation and at the end of the procedure. An esophageal temperature probe (12 electrode, Circa) was placed by the anesthesiologist at the beginning of the procedure. Esophageal temperature was monitored continuously and cryoablation was interrupted if esophageal temperature was <15 C. Cryoapplications 9 total cryoablation time 1121 s. ICE imaging post ablation was consistent with pre ablation imaging with no changes noted, moreover there was no left atrial/left ventricular thrombus and no pericardial effusion. The catheters were withdrawn. Protamine was given. The sheaths were removed and manual pressure was used for hemostasis. The patient was recovered from anesthesia. There were no complications. The patient was arousable and moving all four extremities at the end of the procedure. CONCLUSIONS: 1. Paroxysmal atrial fibrillation. 2. Successful pulmonary vein isolation procedure (left and right pulmonary vein antrum) using cryoballoon ablation. 3. No apparent complications. Patient Problems: Problems Problem Status Onset Atrial fibrillation Acute Dyspnea Acute Chest pain Acute
[2017-08-16] MEDS ORDERED: ONDANSETRON 4 MG/2 ML VIAL IVP PRN (16:30)
[2017-08-16 18:27] LABS: ANION GAP 13 mEq/L (8-16); CARBON DIOXIDE 16 mEq/l (22-31); CHLORIDE 117 mEq/L (97-110); CREATININE 0.5 mg/dL (0.6-1.0); GLOMERULAR FILTRATION RATE > 60; GLUCOSE 127 mg/dL (70-100); MAGNESIUM 1.5 mg/dL (1.6-2.3); POTASSIUM 3.3 mEq/L (3.5-5.2); SODIUM 146 mEq/L (134-144)
[2017-08-16] MEDS ORDERED: PRAVASTATIN SODIUM 20 MG TAB PO SCH (21:00)
[2017-08-16 22:02] VITALS: TEMP 98.2
[2017-08-16] MEDS ORDERED: ENOXAPARIN 60 MG/0.6 ML SYR SC SCH (23:00)
[2017-08-17 06:11] LABS: % IMMATURE GRANULYOCYTES 0.3 % (0.0-1.1); ABSOLUTE IMMATURE GRANULOCYTES 0.03 10^3/uL (0.00-0.10); ADD DIFF? NO; ADD MORPH? NO; ADD SCAN? NO; ATYPICAL LYMPHOCYTE FLAG 10 (0-99); FRAGMENT RBC FLAG 0 (0-99); HEMATOCRIT 35.8 % (38.0-47.0); HEMOGLOBIN 12.4 g/dL (12.6-16.3); LEFT SHIFT FLG 0 (0-99); LIPEMIA HEMOLYSIS FLAG 90 (0-99); MEAN CELL HEMOGLOBIN CONCENTR. 34.6 g/dL (32.4-36.7); MEAN CELL VOLUME 89.5 fL (81.5-99.8); MEAN PLATELET VOLUME 8.7 fL (8.7-11.7); PLATELET CLUMPS FLAG 10 (0-99); PLATELET COUNT 245 10^3/uL (150-400); RED CELL DISTRIBUTION WIDTH 11.4 % (11.5-15.2)
[2017-08-17 06:20] LABS: ANION GAP 12 mEq/L (8-16); CALCIUM 9.1 mg/dL (8.5-10.4); CARBON DIOXIDE 24 mEq/l (22-31); CHLORIDE 104 mEq/L (97-110); CREATININE 0.6 mg/dL (0.6-1.0); GLOMERULAR FILTRATION RATE > 60; GLUCOSE 111 mg/dL (70-100); POTASSIUM 4.2 mEq/L (3.5-5.2); SODIUM 140 mEq/L (134-144)
[2017-08-17 06:27] LABS: INR 0.97 (0.83-1.16); PROTIME(PATIENT) 13.1 SEC (12.0-15.0)
[2017-08-17 06:43] LABS: CK-MB INTERPRETATION POSITIVE (NEGATIVE)
[2017-08-17 07:27] VITALS: BP 113/73; PULSE 72; RESP 12; O2SAT 94
--- NOTE | 2017-08-17 08:46 | ECHO ---
[email or web address] [address] [address] Main: [phone] Fax: Transthoracic Echocardiogram Name: ALEJANDRINA HOYT MR#: [id number] Study Date: 08/17/2017 Study Time: 07:43 AM Date of : 1960 Age: 57 year(s) Height: 162.6 cm (64 in.) Weight: 67.59 kg (149 lb.) BSA: 1.73 m2 Gender: Female Examination: Echo Indication: Post EP Image Quality: Contrast: Requested by: Irwin Ivey BP: 113 mmHg/73 mmHg Heart Rate: Rhythm: Normal sinus rhythm Indication: Post EP Procedure Staff Antique Dealer: Carloz Crawford Reading Physician: Irwin Ivey Requesting Provider: Conclusions: Normal global systolic LV function. No pericardial effusion. Measurements: Chambers Valvular Assessment AV/MV Valvular Assessment TV/PV Normal Normal Normal Name Value Range Name Value Range Name Value Range Ao Malgorzata (MM): 2.3 cm (2.2 cm-3.7 AV Vmax: 1.33 m/s (1 m/s-1.7 TR Vmax: 2.52 mm/s ( - ) cm) m/s) TR PGmax: 25 mmHg ( - ) IVSd (2D): 1.0 cm (0.6 cm-1.1 AV maxP mmHg ( - ) syst. PAP: 30 mmHg ( - ) cm) LVOT Vmax: 1.11 m/s (0.7 m/s-1.1 PV Vmax: 0.99 m/s (0.6 m/s-0.9 LVDd (2D): 4.8 cm (3.9 cm-5.3 m/s) m/s) cm) MV E Vmax: 0.94 m/s ( - ) PV PGmax: 4 mmHg ( - ) LVDs (2D): 3.0 cm (2.1 cm-4 MV A Vmax: 0.71 m/s ( - ) cm) MV E/A: 1.32 ( - ) LVPWd (2D): 0.9 cm ( - ) LVEF (2D): 66 (>=54 %) Continued Measurements: Chambers Valvular Assessment AV/MV Valvular Assessment TV/PV Name Value Name Value Name Value LADs Lon.9 cm MV E/E' Septal: 13.80 CVP (est.): 5 mmHg LA Area: 18.6 cm2 MV E/E' Lateral: 9.60 LA Volume: 60 ml LA Volume Index: 34.7 ml/m2 Findings: Left Ventricle: Patient: ALEJANDRINA HOYT Study Date: 08/17/2017 Page 1 of 2 07:43 AM Normal size left ventricle. No LV hypertrophy. Normal global systolic LV function. EF is 66 %. No regional wall motion abnormality. Right Ventricle: Normal size right ventricle. Left Atrium: The left atrium is normal in size. Right Atrium: The right atrium is normal in size. Mitral Valve: The mitral valve is normal in appearance and function. Trivial to mild mitral regurgitation. Aortic Valve: The aortic valve is tri-leaflet. The aortic valve is normal in appearance and function. Trivial aortic valve regurgitation. Tricuspid Valve: The tricuspid valve is normal in appearance and function. Pulmonic Valve: The pulmonic valve is normal in appearance and function. Aorta: The aorta is normal. Pericardium: No pericardial effusion. (No Signature Object) Patient: ALEJANDRINA HOYT Study Date: 08/17/2017 Page 2 of 2 07:43 AM [id number]
--- NOTE | 2017-08-17 08:48 | CPEKG ---
Heart Rate: 74 RR Interval: 811 P-R Interval: 176 QRSD Interval: 104 QT Interval: 400 QTC Interval: 444 P [place]: -13 QRS [place]: 41 T Wave [place]: 51 EKG Severity - NORMAL ECG - EKG Impression: SINUS RHYTHM Electronically Signed By: Irwin Ivey 17-Aug-2017 16:15:17
[2017-08-17] MEDS ORDERED: VITAMIN B COMPLEX 1 EA CAP/TAB PO SCH (09:00)
[2017-08-17] MEDS ORDERED: FERROUS SULFATE 325 MG TAB PO SCH (09:00)
[2017-08-17] MEDS ORDERED: NON-FORMULARY NEW DRUG (Omeprazole Magnesium [Prilosec Otc] 20 MG) PO SCH (09:00)
[2017-08-17] MEDS ORDERED: PANTOPRAZOLE SODIUM 40 MG TAB PO SCH ×2 (09:00)
[2017-08-17] MEDS ORDERED: APIXABAN 5 MG TAB PO SCH (10:30)
--- NOTE | 2017-08-17 12:19 | ASMTCMCOM ---
CM Note CM Note Notes: Pt. is a 57-year-old woman admitted in OBS status with symptomatic Afib. Per RN and concrete tester, Pt. d/cing today independently to her , Art. Date Signed: 08/17/2017 12:19 PM Electronically Signed By:Perla Rushing LCSW
--- NOTE | 2017-08-17 16:14 | POSTANESTH ---
Post Anesthetic Evaluation Cardiovascular Status: Normal, Stable Respiratory Status: Normal, Stable Level of Consciousness/Mental Status: Can Participate in Eval Pain Control: Adequate, Prn Tx Ordered Nausea/Vomiting Control: Adequate, Prn Tx Ordered Complications Possibly Related to Anesthesia: None Noted
--- NOTE | 2017-08-18 01:21 | GDS ---
[f rep st] DISCHARGE SUMMARY DISCHARGE DIAGNOSES: 1. Paroxysmal atrial fibrillation, status post cryoballoon ablation. 2. Hypertension. BRIEF HISTORY: This is a 57-year-old woman, who was referred to Dr. Ivey by Dr. Nails for treatment of atrial fibrillation. She has a history of PAF for the last year. She had been experiencing increas ing symptoms despite Rythmol use. Her symptoms are fatigue, shortness of breath, and palpitations. HOSPITAL COURSE: Patient underwent successful pulmonary vein isolation procedure using cryoballoon a blation by Dr. Ivey. There were no complications. She has done well overnight. She denies any chest pain, pressure, tightness, shortness of breath, or pain at her groin sites. She does have mild tend erness at her groin sites. She has not had any bleeding. Telemetry has demonstrated sinus rhythm wi thout any atrial fibrillation overnight. TESTING DONE: Echocardiogram: Ejection fraction is 66% with no wall motion abnormalities, normal ao rta, no pericardial effusion. 12-lead EKG demonstrates sinus rhythm without ST-T wave changes. LABORATORY WORK: WBC is 10.37, hemoglobin 12.4, hematocrit 35.8, platelets 245. Sodium is 140, pota ssium 4.2, chloride 104, bicarb 24, BUN 10, creatinine 0.6, glucose 111. CK is 357, CK-MB fraction 4 8.3, and CK-MB percent 13.5. Troponin is 12.4. These are all elevated and to be expected post ablat ion. PHYSICAL EXAMINATION: VITAL SIGNS: Blood pressure is 113/73, pulse is 72, respirations 12, O2 satur ation on room air is 94%. GENERAL: She is alert and oriented x3, in no acute distress, lying in bed . CARDIAC: Regular rate and rhythm without murmur, rub, or gallop. LUNGS: Clear to auscultation. ABDOMEN: Soft and nontender. Groin sites are without bleeding or hematoma. One suture was removed from right groin site without a problem. EXTREMITIES: Lower extremities are warm. No discoloratio n. No lower extremity edema. Bilateral +2 pedal pulses. DISCHARGE INSTRUCTIONS: Patient was given written instructions, as well as instructions were verball y reviewed with patient and . Specifically, she is not to do any horseback riding for 1 month . DISCHARGE MEDICATIONS: Please see discharge medication reconciliation. Of note, she will continue E liquis 5 mg b.i.d. for 3 months post ablation at least. She was restarted on Eliquis this morning. She will continue Prilosec for at least 6 weeks post ablation; however, she reports she does take thi s regularly anyway. FOLLOWUP: She has a followup on August 30 at 1:[address] Ivey. /[id number]/MODL
--- NOTE | 2017-08-18 17:15 | ASDISCHSUM ---
Discharge Information Plan Status:Home with No Needs Medically Cleared to Leave:08/16/2017 Discharge Date:08/17/2017 12:37 PM CM D/C Disposition:Home, Routine, Self-Care ADT D/C Disposition:Home, Routine, Self-Care Projected Discharge Date:08/17/2017 12:00 AM Transportation at D/C: Discharge Delay Reason: Follow-Up Date:08/17/2017 12:00 AM Discharge Slot: Final Diagnosis: Placement Information Patient Contact Information Contact Name:ESTEVAN Relationship: Address:[address] [place] Alternate Phone: State/Zip Code:[place] [address] Email: Financial Information Financial Class:HMO and PPO Plans Primary Plan Desc:[facility] Primary Plan Number:[id number] Secondary Plan Desc: Secondary Plan Number: Assessment Information [facility] CM Progress Note CM Note CM Note Notes: Pt. is a 57-year-old woman admitted in OBS status with symptomatic Afib. Per RN and cloth shrinker, PtMary jackson/ceasar today independently to her , Art. Date Signed: 08/17/2017 12:19 PM Electronically Signed By:Perla Rushing LCSW Intervention Information Intervention Type:*Incorrect Registration Date of Service:08/16/2017 05:15 PM Patient Type:Inpatient Staff Member:YANNICK Estrada, Alondra Hours: Discipline: Severity: Comment:
== END 2017-08-17 12:37 | disposition home or self-care (01) ==
LOC: FSGY 11:03 → F2N 16:15 → INTOOBSV 16:15
PROVIDERS: ADMIT Internal Medicine Cardiovascular Disease; ATTEND Internal Medicine Cardiovascular Disease
PROC: B245ZZ4 Ultrasonography of Left Heart, Transesophageal (ICD-10-PCS; principal; 2017-08-16)
PROC: B2161ZZ Fluoroscopy of Right and Left Heart using Low Osmolar Contrast (ICD-10-PCS; principal; 2017-08-16)
PROC: 02H73MZ Insertion of Cardiac Lead into Left Atrium, Percutaneous Approach (ICD-10-PCS; principal; 2017-08-16)
PROC: 025T3ZZ Destruction of Left Pulmonary Vein, Percutaneous Approach (ICD-10-PCS; principal; 2017-08-16)
PROC: 02H63MZ Insertion of Cardiac Lead into Right Atrium, Percutaneous Approach (ICD-10-PCS; principal; 2017-08-16)
PROC: 02HK3MZ Insertion of Cardiac Lead into Right Ventricle, Percutaneous Approach (ICD-10-PCS; principal; 2017-08-16)
PROC: 4A023FZ Measurement of Cardiac Rhythm, Percutaneous Approach (ICD-10-PCS; principal; 2017-08-16)
PROC: 5A1213Z Performance of Cardiac Pacing, Intermittent (ICD-10-PCS; principal; 2017-08-16)
DX: I48.0 Paroxysmal atrial fibrillation (principal); I10 Essential (primary) hypertension
CPT/HCPCS: 93005; 93306; 93312; 93656; 93662; C1893; G0378; C1730; C1731; C1732; C1733; C1759; C1766; J0461; J1200; J1644; J1650; J2250; J2405; J2704; J2720; J2930; J3010; Q9967